=== PATIENT | male | born 2005 | race Caucasian/White ===

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

== ENCOUNTER 2024-08-31 08:14 | Emergency (ER) | payer SELFPAY ==
[2024-08-31 08:35] LABS: APPEARANCE,URINE CLEAR; GLUCOSE,URINE NEGATIVE (NEGATIVE); OCCULT BLOOD,URINE NEGATIVE (NEGATIVE)
[2024-08-31 09:30] VITALS: BP 113/66; PULSE 76
[2024-08-31 10:04] LABS: C. TRACHOMATIS BY PCR NOT DETECTED; N. GONORRHOEAE BY PCR NOT DETECTED
== END 2024-08-31 10:14 | disposition home or self-care (01) ==
LOC: MW.ED 08:14
DX: Z11.3 Encounter for screening for infections with a predominantly sexual mode of transmission (principal); Z75.3 Unavailability and inaccessibility of health-care facilities
CPT/HCPCS: 36415; 81003; 86592; 87389; 87491; 87591; 99282; 99283